=== PATIENT | female | born 1930 | race Caucasian/White ===

== ENCOUNTER 2020-08-24 12:38 | Emergency (ER) | payer SELFPAY ==
[2020-08-24 13:33] VITALS: BP 119/62
--- NOTE | 2020-08-24 13:46 | Event Note ---
ED Screening Note ED Screening Note: cough for two weeks ago with mucus no appetite has not been eating for two weeks +generalized weakness +fatigue +light headed no fever no v/d no abd pain no CP PMHx none no allergies to meds This initial assessment/diagnostic orders/clinical plan/treatment(s) is/are subject to change based on patients health status, clinical progression and re- assessment by fellow clinical providers in the ED. Further treatment and workup at subsequent clinical providers discretion. Patient/guardian urged not to elope from the ED as their condition may be serious if not clinically assessed and managed. Initial orders include: labs, EKG, UA, CXR
--- NOTE | 2020-08-24 14:20 | XRay Report ---
CHEST 2 VIEWS INDICATION / CLINICAL INFORMATION: cough. COMPARISON: None available. FINDINGS: SUPPORT DEVICES: None. HEART / MEDIASTINUM: No significant abnormality. LUNGS / PLEURA: No significant pulmonary or pleural abnormality. No pneumothorax. ADDITIONAL FINDINGS: No significant additional findings. IMPRESSION: No significant abnormality Signer Name: Jessee Rodriguez MD FACR Signed: 08/24/2020 2:15 PM Workstation Name: [email or web address]
[2020-08-24 14:22] LABS: Hematocrit 31.8 % (30.3-42.9); Hemoglobin 10.4 gm/dl (10.1-14.3); Mean Corpuscular HGB Conc 33 % (30-34); Mean Corpuscular Volume 88 fl (79-97); Platelet Count 243 K/mm3 (140-440); Red Cell Distribution Width 14.4 % (13.2-15.2)
[2020-08-24 14:43] LABS: Albumin 3.7 g/dL (3.9-5)
[2020-08-24] MEDS ORDERED: SODIUM CHLORIDE 0.9% 1000 ML 1,000 ML IV ONE ×2 (14:45)
[2020-08-24 15:40] LABS: Total Cells Counted 100
[2020-08-24 15:41] LABS: Anisocytosis 1+; Platelet Estimate Consistent w Auto
== END 2020-08-24 15:04 | disposition left against medical advice (07) ==
LOC: ED 12:38
DX: R42 Dizziness and giddiness (principal); Z53.21 Procedure and treatment not carried out due to patient leaving prior to being seen by health care provider
CPT/HCPCS: 36415; 71046; 80053; 82550; 83735; 85007; 85025; 93005